=== PATIENT | female | born 1945 | race Caucasian/White ===

== ENCOUNTER 2021-09-16 15:49 | Emergency (ER) | payer OTHER, BC ==
[~2021-09-16] VITALS: Ht 162.6 cm; Wt 66.7 kg
[2021-09-16 18:15] VITALS: BP 166/83
== END 2021-09-16 18:16 | disposition home or self-care (01) ==
LOC: ER 15:49
DX: S01.111A Laceration without foreign body of right eyelid and periocular area, initial encounter (principal); W01.198A Fall on same level from slipping, tripping and stumbling with subsequent striking against other object, initial encounter; Y93.89 Activity, other specified; Y92.89 Other specified places as the place of occurrence of the external cause; Y99.8 Other external cause status